=== PATIENT | female | born 1960 | race Caucasian/White ===

== ENCOUNTER 2017-02-09 08:27 | Emergency (ER) | payer BC ==
[2017-02-09] MEDS ORDERED: TORAdol 30 mg Injection IV ONE (08:54)
--- NOTE | 2017-02-09 08:54 | ERPHSYRPT ---
- History of Present Illness Time Seen by Provider: 02/09/17 08:44 Historian: patient Exam Limitations: no limitations Patient Subjective Stated Complaint: PT REPORTS LEFT SIDED CHEST PAIN RADIATING TO LEFT SHOULDER BEGINNING ADORE 0330 THIS AM-REPORTS PAIN INCREASES WITH BREATHING-DENIES COUGH-DENIES RECENT ILLNESS Triage Nursing Assessment: PT PINK WARM ET [id number] EASY ET NONLABORED- LUNGS CLEAR-RIGHT RADIAL PULSE REGULAR-PT AMBULATORY TO ED WITH NO SOB NOTED Physician History: The patient is a 57-year-old female who was sent to the emergency room from work today because she was complaining of chest pain when she woke up last night at 3:30 AM. Chest pain is in the upper left part of her chest that extends to her left shoulder. It hurts to take deep breath and move her left shoulder. She denies shortness of breath. She denies nausea or vomiting. She denies sweating. She describes the chest pain as tightness. 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 Her past medical history is significant for hypertension, CHF, depression, high cholesterol, asthma, and hypothyroidism. Timing/Duration: today, hour(s) (6) Activities at Onset: none Quality: tightness Location: other (left chest) Chest Pain Radiation: arm (left shoulder) Severity of Pain-Max: moderate Severity of Pain-Current: moderate Modifying Factors: Improves With: breathing, movement Associated Symptoms: denies symptoms Prior Chest Pain/Cardiac Workup: no prior chest pain Nitro Today/Relief: no nitro taken today Aspirin Treatment Today: 81 mg x 1 Allergies/Adverse Reactions: No Known Drug Allergies Allergy (Verified 02/09/17 08:36) Home Medications: Albuterol Sulfate [Ventolin Hfa] 2 puffs IH Q6HPRN PRN 04/13/16 [History] Carvedilol 12.5 mg [Coreg 12.5 mg] 12.5 mg PO BID 04/13/16 [History] Fluoxetine HCl 10 mg [Prozac 10 mg] 10 mg PO DAILY 04/13/16 [History] Levothyroxine Sodium 75 Mcg [Synthroid 75 Mcg] 75 mcg PO DAILY 04/13/16 [ History] Lisinopril 20 mg [Zestril 20 MG] 20 mg PO DAILY 04/13/16 [History] Pravastatin Sodium [Pravachol] 20 mg PO HS 04/13/16 [History] Ascorbic Acid 500 mg [Vitamin C 500 MG] 1,000 mg PO DAILY 04/15/16 [ History] Aspirin 81 gm Chew [Baby Aspirin 81 mg Chew] 81 mg PO DAILY 04/15/16 [ History] Ca Carb & Gluc/Mag Ox & Gluc [Calcium Magnesium Caplet] 1 each PO DAILY [History] Cranberry Extract/Vit C [Azo Cranberry Softgel] 1 each PO DAILY 04/15/16 [ History] Cyanocobalamin/Folic Acid [B-12 1,000 Mcg Sub Tablet] 1 each SL DAILY 04/15/16 [ History] Echinacea 0 mg PO DAILY 04/15/16 [History] Ferrous Sulfate, Dried [Iron] 65 mg PO DAILY 04/15/16 [History] [place]-3 Fatty Acids/Fish Oil [Fish Oil 1,000 mg Capsule] 1,000 mg PO DAILY 04/15/16 [History] Potassium 99 mg PO DAILY 04/15/16 [History] Vitamin E 400 Units [Vitamin E 400 UNIT SOFTGEL] 400 unit PO DAILY [History] Hx Tetanus, Diphtheria Vaccination/Date Given: No Hx Influenza Vaccination/Date Given: Yes (2015) Hx Pneumococcal Vaccination/Date Given: No Immunizations Up to Date: Yes - Review of Systems Constitutional: No Fever, No Chills Eyes: No Symptoms Ears, Nose, & Throat: No Symptoms Respiratory: No Cough, No Dyspnea Cardiac: Chest Pain, No Edema, No Syncope Abdominal/Gastrointestinal: No Abdominal Pain, No Nausea, No Vomiting, No Diarrhea Genitourinary Symptoms: No Dysuria Musculoskeletal: Myalgias Skin: No Rash Neurological: No Dizziness, No Focal Weakness, No Sensory Changes Psychological: No Symptoms Endocrine: No Symptoms Hematologic/Lymphatic: No Symptoms Immunological/Allergic: No Symptoms All Other Systems: Reviewed and Negative - Past Medical History Pertinent Past Medical History: Yes Neurological History: No Pertinent History ENT History: No Pertinent History Cardiac History: Arrhythmia, High Cholesterol, Hypertension Respiratory History: Asthma Endocrine Medical History: Hypothyroidism Musculoskeletal History: Arthritis GI Medical History: Hepatitis History: No Pertinent History Psycho-Social History: Anxiety Female Reproductive Disorders: No Pertinent History Other Medical History: hepatitis as a young child. rheumatic fever/ heart murmur - Past Surgical History Past Surgical History: Yes Neuro Surgical History: No Pertinent History Cardiac: Cardiac Catheterization Respiratory: No Pertinent History Gastrointestinal: Cholecystectomy Genitourinary: No Pertinent History Musculoskeletal: No Pertinent History Female Surgical History: Section, Tubal Ligation Other Surgical History: cystectomy. d&c. breast bx,. bilateral heal spurs - Social History Smoking Status: Former smoker Exposure to second hand smoke: No Drug Use: none Patient Lives Alone: No - Nursing Vital Signs Nursing Vital Signs: Initial Vital Signs Temperature 97.5 F 02/09/17 08:28 Pulse Rate 65 02/09/17 08:28 Respiratory Rate 20 02/09/17 08:28 Blood Pressure 147/74 02/09/17 08:28 O2 Sat by Pulse Oximetry 99 02/09/17 08:28 Pain Scale Pain Intensity 0 - Physical Exam General Appearance: no apparent distress, alert Eye Exam: PERRL/EOMI, eyes nml inspection Ears, Nose, Throat Exam: normal ENT inspection Neck Exam: normal inspection, non-tender, supple, full range of motion Respiratory Exam: chest tenderness (Light palpation of the left pectoralis muscle and left deltoid muscle reproduces the patient's pain.) Cardiovascular Exam: regular rate/rhythm, normal heart sounds Gastrointestinal/Abdomen Exam: soft, No tenderness, No mass Pelvic Exam: not done Rectal Exam: not done Back Exam: normal inspection, No CVA tenderness, No vertebral tenderness Extremity Exam: normal inspection, normal range of motion Neurologic Exam: alert, oriented x 3, cooperative, normal mood/affect, sensation nml, No motor deficits Skin Exam: normal color, warm, dry SpO2 Interpretation: normal SpO2: 99 Oxygen Delivery: Room Air - Course EKG Interpreted by Me: RATE, Sinus Rhythm, NORMAL AXIS, NORMAL INTERVALS, NORMAL QRS, NORMAL ST-T - Radiology Exams Chest X-ray Interpretation: Teleradiologist Report, Negative (per Dr Joaquin.) Ordered Tests: Active Orders 24 hr Category Date Time Status EKG-ER Only STAT Care 02/09/17 08:54 Active IV Insertion STAT Care 02/09/17 08:54 Active CHEST 2 VIEWS (PA AND LAT) Stat Exams 02/09/17 08:54 Completed CBC W DIFF Stat Lab 02/09/17 09:02 Completed CMP Stat Lab 02/09/17 09:02 Completed TROPONIN Q3H Lab 02/09/17 08:59 Completed TROPONIN Q3H Lab 02/09/17 12:00 Ordered TROPONIN Q3H Lab 02/09/17 15:00 Ordered TROPONIN Q3H Lab 02/09/17 18:00 Ordered TROPONIN Q3H Lab 02/09/17 21:00 Ordered Medication Summary Discontinued Medications Generic Name Dose Route Start Last Admin Trade Name Stefan PRN Reason Stop Dose Admin Ketorolac Tromethamine 30 mg 02/09/17 08:54 02/09/17 08:59 Toradol 30 Mg Injection IV 02/09/17 08:55 30 mg STAT ONE Administration Ketorolac Tromethamine Confirm 02/09/17 08:57 Toradol 30 Mg Injection Administered 02/09/17 08:58 Dose 30 mg .ROUTE .[employer] ONE Lab/Rad Data: Laboratory Result Diagrams 02/09/17 09:02 02/09/17 09:02 Laboratory Results 02/09/17 02/09/17 02/09/17 Range/Units 09:02 09:02 08:59 WBC 9.9 (4.0-10.5) K/mm3 RBC 4.59 (4.1-5.4) M/mm3 Hgb 12.9 (12.0-16.0) gm/dl Hct 41.3 (35-47) % MCV 90.0 (78-100) fl MCH 28.1 (26-32) pg MCHC 31.2 L (32-36) g/dl RDW 14.4 H (11.5-14.0) % Plt Count 286 (150-450) K/mm3 MPV 11.6 H (6-9.5) fl Gran % 68.2 H (36.0-66.0) % Lymphocytes % 22.7 L (24.0-44.0) % Monocytes % 7.0 (0.0-12.0) % Eosinophils % 1.9 (0.00-5.0) % Basophils % 0.2 (0.0-0.4) % Basophils # 0.02 (0-0.4) Sodium 139 (136-145) mEq/L Potassium 4.0 (3.5-5.1) mEq/L Chloride 102 (98-107) mEq/L Carbon Dioxide 29.6 (21-32) mEq/L Anion Gap 11.6 (5-15) MEQ/L BUN 16 (9-20) mg/dL Creatinine 0.85 (0.55-1.30) mg/dl Estimated GFR > 60 ML/MIN Glucose 102 (70-110) MG/DL Calcium 9.7 (8.5-10.1) mg/dL Total Bilirubin 0.40 (0.2-1.0) mg/dL AST 15 (15-37) U/L ALT 18 (12-78) U/L Alkaline Phosphatase 72 (46-116) U/L Troponin I < 0.017 (0.000-0.056) ng/ml Serum Total Protein 7.7 (6.4-8.2) gm/dL Albumin 3.7 (3.4-5.0) g/dL - Progress Progress: improved Air Movement: good Blood Culture(s) Obtained: No Antibiotics given: No Counseled pt/family regarding: lab results, diagnosis, rad results - Departure Time of Disposition: 10:05 Departure Disposition: Home Clinical Impression: Musculoskeletal chest pain Condition: Stable Critical Care Time: No Additional Instructions: You have musculoskeletal chest pain. You were given Toradol 30 mg by IV in the ER with good results. If needed, take Tylenol 1000 mg and ibuprofen 800 mg every 8 hours. Follow-up as needed.
[2017-02-09] MEDS ORDERED: TORAdol 30 mg Injection ONE (08:57)
[2017-02-09 09:10] LABS: BASOPHIL % 0.2 % (0.0-0.4); Eosinophil % 1.9 % (0.00-5.0); Granulocytes % 68.2 % (36.0-66.0); Lymphocytes % 22.7 % (24.0-44.0); Mean Corpuscular Hemoglobin 28.1 pg (26-32); Mean Platelet Volume 11.6 fl (6-9.5); Platelet Count 286 K/mm3 (150-450); Red Blood Count 4.59 M/mm3 (4.1-5.4); Red Cell Distribution Width 14.4 % (11.5-14.0); White Blood Count 9.9 K/mm3 (4.0-10.5)
--- NOTE | 2017-02-09 09:18 | XRAY ---
Indication: Chest and left shoulder pain. Comparison: October 23, 2009. PA/lateral chest remains hyperinflated and clear. Heart and mediastinal structures within normal limits. Bony thorax intact again with mild degenerative changes. Impression: Stable nonacute hyperinflated chest.
[2017-02-09 09:47] LABS: ALBUMIN 3.7 g/dL (3.4-5.0); ALKALINE PHOSPHATASE 72 U/L (46-116); ANION GAP 11.6 MEQ/L (5-15); BLOOD UREA NITROGEN 16 mg/dL (9-20); CHLORIDE 102 mEq/L (98-107); Carbon Dioxide 29.6 mEq/L (21-32); Glucose 102 MG/DL (70-110); SGOT/AST 15 U/L (15-37); SGPT/ALT 18 U/L (12-78); SODIUM 139 mEq/L (136-145); Total Protein 7.7 gm/dL (6.4-8.2)
[2017-02-09 10:07] VITALS: BP 140/80; PULSE 55; O2SAT 99
== END 2017-02-09 10:13 | disposition home or self-care (01) ==
LOC: ED 08:27
DX: R07.89 Other chest pain (principal); I10 Essential (primary) hypertension; E78.00 Pure hypercholesterolemia, unspecified; E03.9 Hypothyroidism, unspecified; Z79.899 Other long term (current) drug therapy
CPT/HCPCS: 36000; 36415; 71020; 80053; 84484; 85025; 93005; 93041; 96374; 99284; J1885

== ENCOUNTER 2020-03-07 08:12 | Emergency (ER) | payer OTHER ==
[2020-03-07] MEDS ORDERED: Zofran 4 MG/2 ML VIAL IV ONE (08:36)
[2020-03-07] MEDS ORDERED: MORPHINE SULFATE 2 MG INJ IV ONE (08:36)
[2020-03-07] MEDS ORDERED: Sodium Chloride 0.9% 1000 ML 1,000 ML IV SCH (08:45)
[2020-03-07] MEDS ORDERED: Zofran 4 MG/2 ML VIAL ONE (08:49)
[2020-03-07] MEDS ORDERED: MORPHINE SULFATE 2 MG INJ ONE (08:49)
[2020-03-07] MEDS ORDERED: Sodium Chloride 0.9% 1000 ML 1,000 ML ONE (08:49)
[2020-03-07 08:59] LABS: Absolute Neutrophil Ct (ANC) 9.04 (1.4-6.9); BASOPHIL % 0.3 % (0.0-0.4); Basophil (Absolute #) 0.03 (0-0.4); Eosinophil % 2.5 % (0.00-5.0); Eosinophil (Absolute #) 0.29 (0-0.5); Hematocrit 41.9 % (35-47); Hemoglobin 13.1 gm/dl (12.0-16.0); Lymphocyte (Absolute #) 1.77 (1.0-4.6); Lymphocytes % 15.1 % (24.0-44.0); Mean Cell Volume 92.3 fl (78-100); Mean Corpuscular Hemoglobin 28.9 pg (26-32); Mean Corpuscular Hgb Concent. 31.3 g/dl (32-36); Mean Platelet Volume 11.3 fl (7.5-11.0); Monocyte (Absolute #) 0.61 (0.0-1.3); Monocytes % 5.2 % (0.0-12.0); Neutrophil % 76.9 % (36.0-66.0); Platelet Count 265 K/mm3 (150-450); Red Blood Count 4.54 M/mm3 (4.1-5.4); Red Cell Distribution Width 14.7 % (11.5-14.0); White Blood Count 11.7 K/mm3 (4.0-10.5)
[2020-03-07 09:04] LABS: Appearance SLIGHTLY CLOUDY (CLEAR); Bacteria MODERATE /HPF (NEGATIVE); Bilirubin NEGATIVE (NEGATIVE); Blood MODERATE Ery/ul (0-5); Epithelial Cells RARE /HPF (FEW); Glucose NEGATIVE (NEGATIVE); Ketones NEGATIVE (NEGATIVE); Leukocyte Esterase TRACE (NEGATIVE); Mucus SLIGHT /HPF (NEGATIVE); Nitrite POSITIVE (NEGATIVE); Protein,Urine Dip NEGATIVE (Negative); RBC 51-100 /HPF (0-2); Specific Gravity 1.015 (1.005-1.025); Urobilinogen 4 mg/dL (0-1); WBC >100 /HPF (0-5)
[2020-03-07 09:07] LABS: ALBUMIN 4.2 g/dL (3.5-5.0); BILIRUBIN,TOTAL 0.8 mg/dL (0.2-1.3); Calcium 9.6 mg/dL (8.4-10.2); Creatinine 1 1.02 mg/dL (0.52-1.04); EST GLOMERULAR FILTRATION RATE 58.8 ML/MIN; Potassium 4.7 mmol/L (3.5-5.1); Total Protein 7.3 g/dL (6.3-8.2)
[2020-03-07 10:03] VITALS: BP 144/79; PULSE 67; O2SAT 94
--- NOTE | 2020-03-07 10:16 | XRAY ---
Exam: CT of the abdomen and pelvis with IV contrast from 03/07/2020. CTDI: 39.19 mGy Comparison: None. Indication: 60-year-old female with pain. Technique: Post-IV contrast axial images were obtained through the abdomen and pelvis during and following automated injection of 80 cc of Isovue-370 contrast material. Nor oral contrast was given. Reconstructed coronal and sagittal images were created and reviewed. Findings: There is asymmetric swelling and perirenal stranding about the right kidney as compared the left kidney. Also, I see no significant excretion of contrast material from the right kidney on the delay images. There is equivocal evidence of a tiny stone within the posterior aspect of the dilated right renal pelvis on axial images #41 and #42 of series #5. Not only is there hydronephrosis on the right, but the right ureter appears asymmetrically distended down to the level of 3.1 mm calcification within the distal right ureter on axial images #72 and #73 of series 2. This measures about 3.8 mm in diameter on coronal image #134. This appears to represent an obstructing distal right ureteral stone just above the ureterovesical junction. The left ureter appears unremarkable. There is a tiny cortical cyst at the lateral margin of lower pole of the left kidney. No solid renal mass is seen. The lung bases appear essentially clear. The transverse heart size is normal. Mild diffuse hepatic steatosis is seen. Numerous surgical clips consistent with prior cholecystectomy are noted. No hepatic mass or biliary duct distention is seen. The spleen is of normal size without mass. The pancreas and adrenal glands appear normal. Other than the small cortical cyst within the lower pole of the left kidney, the left kidney appears essentially unremarkable. The abdominal aorta reveals atherosclerotic vascular calcification but no aneurysm or abnormal retroperitoneal lymphadenopathy. Abundant subcutaneous and intraperitoneal fat is seen. There is no free intraperitoneal air. The abdomen is protuberant. A small fat-containing umbilical hernia is seen on midline sagittal image #106. No bowel containing ventral hernia is seen. The bowel is nonobstructed. No bowel wall thickening is seen. I see no findings to suggest acute appendicitis within the right lower quadrant. The uterus is anteflexed and of normal size. The ovaries appear of unremarkable size. No enlarged pelvic lymph nodes or free intraperitoneal fluid is seen. The urinary bladder is mostly contracted. The skeleton reveals no acute fracture or aggressive bone lesion. Moderate to marked bilateral facet joint arthropathy is seen at L4-L5 and L5-S1. Vacuum disc phenomena is seen within the upper 3 lumbar discs. I also note narrowing of L-1L2 interspace height, and to lesser extent, the L2-L3 interspace height. Anterior lateral vertebral endplate spurring is seen within the upper 3 lumbar interspaces. These findings suggest degenerative disc disease. There appears to be slight retrolisthesis of L2 with respect L3 and L3 with respect L4 on sagittal image #97, likely degenerative in nature. Impression: 1. Acute obstructive uropathy on the right with hydroureteronephrosis, right perirenal stranding, and delay in excretion of contrast into the right kidney. This appears to be caused by a 3.8 mm obstructing distal right ureteral stone just above the ureterovesical junction. There is also equivocal evidence of another tiny stone within the posterior aspect of the dilated right renal pelvis. See axial images #41 and #42 of series 2. 2. Hepatic steatosis, evidence of prior cholecystectomy, small cortical cyst within lower pole of the left kidney, atherosclerotic vascular calcification, and mild fat-containing umbilical hernia. There is no bowel obstruction or free air or free fluid. 3. Skeletal findings, as discussed above.
--- NOTE | 2020-03-07 10:30 | ERPHSYRPT ---
- History of Present Illness Time Seen by Provider: 03/07/20 08:40 Historian: patient Exam Limitations: no limitations Patient Subjective Stated Complaint: Pt woke approx 0200 with pain to the right flank, right upper and lower quadrant, rates pain 9/10 Triage Nursing Assessment: Pt was brought to the ER by her daughter, hypertensive, acute right sided abdominal pain, acute right flank pain, diarrhea all night, states that she was fine when she went to bed and woke approx 0200 with the pain, bowel sounds heard in all 4, pt appears to be in moderate pain, denies any other issues at this time Physician History: Patient is a 6-year-old female presents to our ED with complaints of right-sided flank pain. Patient had loose stools that started last night. Patient felt well as she went to bed however awoke early this morning with right-sided flank pain. Pain described as an ache that spans from her right upper to right lower flanks. No associated trauma. No fever. Patient took Tylenol with minimal improvement. Pain rated 9 out of 10. No specific worsening or improving factors. Patient denies chest pain. She feels mildly nauseous. No vomiting. Patient voices no other complaints or concerns at this time. Timing/Duration: today Activities at Onset: none Quality: aching Abdominal Pain Onset Location: flank Pain Radiation: no radiation Severity of Pain-Max: moderate Severity of Pain-Current: mild Modifying Factors: Improves With: nothing Associated Symptoms: diarrhea, nausea, No chest pain, No diaphoresis, No fever/chills, No fatigue, No headache, No heartburn, No loss of appetite, No neck pain, No shortness of breath Previous symptoms: no prior history Allergies/Adverse Reactions: No Known Drug Allergies Allergy (Verified 03/07/20 08:49) Home Medications: Carvedilol 12.5 mg [Coreg 12.5 mg] 12.5 mg PO BID 04/13/16 [History] Fluoxetine HCl 10 mg [Prozac 10 mg] 10 mg PO DAILY 04/13/16 [History] Levothyroxine Sodium 75 Mcg [Synthroid 75 Mcg] 75 mcg PO DAILY 04/13/16 [History] Lisinopril 20 mg [Zestril 20 MG] 20 mg PO DAILY 04/13/16 [History] Pravastatin Sodium [Pravachol] 20 mg PO HS 04/13/16 [History] Ascorbic Acid 500 mg [Vitamin C 500 MG] 1,000 mg PO DAILY 04/15/16 [History] Aspirin 81 gm Chew [Baby Aspirin 81 mg Chew] 81 mg PO DAILY 04/15/16 [History] Calcium Carb,Gluc/Mag Ox,Gluc [Calcium Magnesium Caplet] 1 each PO DAILY 04/15/16 [History] Cranberry Fruit Extract/Vit C [Azo Cranberry Softgel] 1 each PO DAILY 04/15/16 [History] Cyanocobalamin/Folic Acid [B-12 1,000 Mcg Sub Tablet] 1 each SL DAILY 04/15/16 [History] Echinacea 760 mg PO DAILY 04/15/16 [History] Ferrous Sulfate, Dried [Iron] 65 mg PO DAILY 04/15/16 [History] [place]-3 Fatty Acids/Fish Oil [Fish Oil 1,000 mg Capsule] 1,000 mg PO DAILY 04/15/16 [History] Potassium 99 mg PO DAILY 04/15/16 [History] Vitamin E 400 Units [Vitamin E 400 UNIT SOFTGEL] 400 unit PO DAILY 04/15/16 [History] Nabumetone [Relafen] 750 mg PO DAILY 03/07/20 [History] Hx Tetanus, Diphtheria Vaccination/Date Given: No Hx Influenza Vaccination/Date Given: Yes (2015) Hx Pneumococcal Vaccination/Date Given: No Travel Risk - International Travel Have you traveled outside of the country in past 3 weeks: No - Coronavirus Screening Are you exhibiting any of the following symptoms?: No Close contact with a COVID-19 positive Pt in past 14-21 Days: No - Review of Systems Constitutional: No Symptoms, No Fever, No Chills Eyes: No Symptoms Ears, Nose, & Throat: No Symptoms Respiratory: No Symptoms, No Cough, No Dyspnea Cardiac: No Symptoms, No Chest Pain, No Edema, No Syncope Abdominal/Gastrointestinal: No Symptoms, No Abdominal Pain, No Nausea, No Vomiting, No Diarrhea Genitourinary Symptoms: No Symptoms, No Dysuria Musculoskeletal: No Symptoms, No Back Pain, No Neck Pain Skin: No Symptoms, No Rash Neurological: No Symptoms, No Dizziness, No Focal Weakness, No Sensory Changes Psychological: No Symptoms Endocrine: No Symptoms Hematologic/Lymphatic: No Symptoms Immunological/Allergic: No Symptoms All Other Systems: Reviewed and Negative - Past Medical History Pertinent Past Medical History: Yes Neurological History: Migraines ENT History: No Pertinent History Cardiac History: High Cholesterol, Hypertension, Other Respiratory History: Asthma Endocrine Medical History: Hypothyroidism Musculoskeletal History: Osteoarthritis GI Medical History: Hepatitis History: No Pertinent History Psycho-Social History: Anxiety Female Reproductive Disorders: No Pertinent History Other Medical History: PMHX: HEART MURMUR, DEPRESSION. SXHX: TAILBONE CYST REMOVED, CHOLECYSTECTOMY, HEEL SPURS REMOVED BILATERALLY, BREAST NODULE REMOVED (NOT MALIGNANT) - Past Surgical History Past Surgical History: Yes Neuro Surgical History: No Pertinent History Cardiac: Cardiac Catheterization Respiratory: No Pertinent History Gastrointestinal: Cholecystectomy Genitourinary: No Pertinent History Musculoskeletal: No Pertinent History Female Surgical History: Section, Tubal Ligation Other Surgical History: cystectomy. d&c. breast bx,. bilateral heal spurs - Social History Smoking Status: Former smoker Exposure to second hand smoke: Yes Drug Use: none Patient Lives Alone: Yes - Nursing Vital Signs Nursing Vital Signs: Initial Vital Signs Temperature 98.1 F 03/07/20 08:34 Pulse Rate 65 03/07/20 08:34 Blood Pressure 166/80 03/07/20 08:34 O2 Sat by Pulse Oximetry 96 03/07/20 08:34 Pain Scale Pain Intensity 9 - Physical Exam General Appearance: no apparent distress, alert Eye Exam: PERRL/EOMI, eyes nml inspection Ears, Nose, Throat Exam: normal ENT inspection, pharynx normal, moist mucous m embranes Neck Exam: normal inspection, non-tender, supple, full range of motion Respiratory Exam: normal breath sounds, lungs clear, No respiratory distress Cardiovascular Exam: regular rate/rhythm, normal heart sounds Gastrointestinal/Abdomen Exam: soft, tenderness, other (Mild right flank tenderness. Overlying soft tissue intact. No signs of trauma.), No mass Back Exam: normal inspection, normal range of motion, No CVA tenderness, No vertebral tenderness Extremity Exam: normal inspection, normal range of motion, pelvis stable Neurologic Exam: alert, oriented x 3, cooperative, normal mood/affect, nml cerebellar function, sensation nml, No motor deficits Skin Exam: normal color, warm, dry Lymphatic Exam: adenopathy SpO2 Interpretation: normal SpO2: 94 O2 Delivery: Room Air - Course Nursing assessment & vital signs reviewed: Yes - CT Exams Abdomen/Pelvis CT Interpretation: Tele-radiologist Report (Report reveals right sided obstructing kidney stone measuring 3.8 mm at the UVJ with hydronephrosis and stranding around the right kidney. There is a fat-containing umbilical hernia hepatic steatosis spine arthritis and a renal cyst.) Ordered Tests: Active Orders 24 hr Category Date Time Status IV Insertion STAT Care 03/07/20 08:36 Active ABDOMEN AND PELVIS W CONTRAST [CT] Stat Exams 03/07/20 08:37 Completed CBC W DIFF Stat Lab 03/07/20 08:50 Completed CMP Stat Lab 03/07/20 08:50 Completed CULTURE,URINE Stat Lab 03/07/20 08:47 Received TROPONIN Q3H Lab 03/07/20 08:50 Completed TROPONIN Q3H Lab 03/07/20 11:45 Ordered TROPONIN Q3H Lab 03/07/20 14:45 Ordered TROPONIN Q3H Lab 03/07/20 17:45 Ordered TROPONIN Q3H Lab 03/07/20 20:45 Ordered UA W/RFX UR CULTURE Stat Lab 03/07/20 08:47 Completed Medication Summary Generic Name Dose Route Start Last Admin Trade Name Freq PRN Reason Stop Dose Admin Sodium Chloride 1,000 mls @ 50 mls/hr 03/07/20 08:45 03/07/20 08:50 Sodium Chloride 0.9% 1000 Ml IV 04/06/20 08:44 50 mls/hr .Q20H JOZEF Administration Ceftriaxone Sodium/Dextrose 1 g in 50 mls @ 100 mls/hr 03/07/20 10:39 03/07/20 10:44 Rocephin 1 Gm-D5w 50 Ml Bag IV 03/07/20 11:08 100 mls/hr STAT STA 100 mls/hr Administration Discontinued Medications Generic Name Dose Route Start Last Admin Trade Name Freq PRN Reason Stop Dose Admin Ceftriaxone Sodium/Dextrose Confirm 03/07/20 10:43 Rocephin 1 Gm-D5w 50 Ml Bag Administered 03/07/20 10:44 Dose 1 g in 50 mls @ ud IV .STK-MED ONE Morphine Sulfate 2 mg 03/07/20 08:36 03/07/20 08:51 Morphine Sulfate 2 Mg Inj IV 03/07/20 08:37 2 mg STAT ONE Administration Morphine Sulfate Confirm 03/07/20 08:49 Morphine Sulfate 2 Mg Inj Administered 03/07/20 08:50 Dose 2 mg .ROUTE .STK-MED ONE Ondansetron HCl 4 mg 03/07/20 08:36 03/07/20 08:50 Zofran 4 Mg/2 Ml Vial IV 03/07/20 08:37 4 mg STAT ONE Administration Ondansetron HCl Confirm 03/07/20 08:49 Zofran 4 Mg/2 Ml Vial Administered 03/07/20 08:50 Dose 4 mg .ROUTE .STK-MED ONE Lab/Rad Data: Laboratory Result Diagrams 03/07/20 08:50 03/07/20 08:50 Laboratory Results 03/07/20 03/07/20 03/07/20 Range/Units 08:50 08:50 08:50 WBC 11.7 H (4.0-10.5) K/mm3 RBC 4.54 (4.1-5.4) M/mm3 Hgb 13.1 (12.0-16.0) gm/dl Hct 41.9 (35-47) % MCV 92.3 (78-100) fl MCH 28.9 (26-32) pg MCHC 31.3 L (32-36) g/dl RDW 14.7 H (11.5-14.0) % Plt Count 265 (150-450) K/mm3 MPV 11.3 H (7.5-11.0) fl Gran % 76.9 H (36.0-66.0) % Eos # (Auto) 0.29 (0-0.5) Absolute Lymphs (auto) 1.77 (1.0-4.6) Absolute Monos (auto) 0.61 (0.0-1.3) Lymphocytes % 15.1 L (24.0-44.0) % Monocytes % 5.2 (0.0-12.0) % Eosinophils % 2.5 (0.00-5.0) % Basophils % 0.3 (0.0-0.4) % Absolute Granulocytes 9.04 H (1.4-6.9) Basophils # 0.03 (0-0.4) Sodium 137 (137-145) mmol/L Potassium 4.7 (3.5-5.1) mmol/L Chloride 103 (98-107) mmol/L Carbon Dioxide 28 (22-30) mmol/L Anion Gap 10.0 (5-15) MEQ/L BUN 22 H (7-17) mg/dL Creatinine 1.02 (0.52-1.04) mg/dL Estimated GFR 58.8 ML/MIN Glucose 159 H (74-106) mg/dL Calcium 9.6 (8.4-10.2) mg/dL Total Bilirubin 0.80 (0.2-1.3) mg/dL AST 19 (14-36) U/L ALT 16 (0-35) U/L Alkaline Phosphatase 81 (38-126) U/L Troponin I < 0.012 (0.000-0.034) ng/mL Serum Total Protein 7.3 (6.3-8.2) g/dL Albumin 4.2 (3.5-5.0) g/dL Urine Color (YELLOW) Urine Appearance (CLEAR) Urine pH (5-6) Ur Specific [place] (1.005-1.025) Urine Protein (Negative) Urine Ketones (NEGATIVE) Urine Blood (0-5) [place]/ul Urine Nitrite (NEGATIVE) Urine Bilirubin (NEGATIVE) Urine Urobilinogen (0-1) mg/dL Ur Leukocyte Esterase (NEGATIVE) Urine WBC (Auto) (0-5) /HPF Urine RBC (Auto) (0-2) /HPF U Epithel Cells (Auto) (FEW) /HPF Urine Bacteria (Auto) (NEGATIVE) /HPF Urine Mucus (Auto) (NEGATIVE) /HPF Urine Culture Reflexed (NO) Urine Glucose (NEGATIVE) mg/dL 03/07/20 Range/Units 08:47 WBC (4.0-10.5) K/mm3 RBC (4.1-5.4) M/mm3 Hgb (12.0-16.0) gm/dl Hct (35-47) % MCV (78-100) fl MCH (26-32) pg MCHC (32-36) g/dl RDW (11.5-14.0) % Plt Count (150-450) K/mm3 MPV (7.5-11.0) fl Gran % (36.0-66.0) % Eos # (Auto) (0-0.5) Absolute Lymphs (auto) (1.0-4.6) Absolute Monos (auto) (0.0-1.3) Lymphocytes % (24.0-44.0) % Monocytes % (0.0-12.0) % Eosinophils % (0.00-5.0) % Basophils % (0.0-0.4) % Absolute Granulocytes (1.4-6.9) Basophils # (0-0.4) Sodium (137-145) mmol/L Potassium (3.5-5.1) mmol/L Chloride (98-107) mmol/L Carbon Dioxide (22-30) mmol/L Anion Gap (5-15) MEQ/L BUN (7-17) mg/dL Creatinine (0.52-1.04) mg/dL Estimated GFR ML/MIN Glucose (74-106) mg/dL Calcium (8.4-10.2) mg/dL Total Bilirubin (0.2-1.3) mg/dL AST (14-36) U/L ALT (0-35) U/L Alkaline Phosphatase (38-126) U/L Troponin I (0.000-0.034) ng/mL Serum Total Protein (6.3-8.2) g/dL Albumin (3.5-5.0) g/dL Urine Color ORANGE (YELLOW) Urine Appearance SLIGHTLY CLOUDY (CLEAR) Urine pH 5.0 (5-6) Ur Specific [place] 1.015 (1.005-1.025) Urine Protein NEGATIVE (Negative) Urine Ketones NEGATIVE (NEGATIVE) Urine Blood MODERATE (0-5) [place]/ul Urine Nitrite POSITIVE (NEGATIVE) Urine Bilirubin NEGATIVE (NEGATIVE) Urine Urobilinogen 4 (0-1) mg/dL Ur Leukocyte Esterase TRACE (NEGATIVE) Urine WBC (Auto) >100 (0-5) /HPF Urine RBC (Auto) 51-100 (0-2) /HPF U Epithel Cells (Auto) RARE (FEW) /HPF Urine Bacteria (Auto) MODERATE (NEGATIVE) /HPF Urine Mucus (Auto) SLIGHT (NEGATIVE) /HPF Urine Culture Reflexed YES (NO) Urine Glucose NEGATIVE (NEGATIVE) mg/dL - Progress Progress: improved Progress Note: 03/07/20 10:54 Patient reassessed. She feels well. Pain resolved. Ceftriaxone antibiotic infused. Patient will require urology services. We currently do not have a urologist available. We will transfer patient to [facility]. Case dis cussed with Dr. Garcia ER physician at [facility] who accepts transfer. Plan of care discussed with patient. She agrees to transfer to [facility] for further evaluation and treatment. Patient voices no other complaints or concerns at this time. Counseled pt/family regarding: lab results, diagnosis, rad results - Departure Departure Disposition: Transfer Clinical Impression: Pyelonephritis, UTI (urinary tract infection), Ureterolithiasis, Hepatic steatosis, Arthritis of spine, Hyperglycemia, Umbilical hernia without mention of obstruction or gangrene, Renal cyst Condition: Stable Critical Care Time: No Referrals: ROCÍO MEDINA MD [Primary Care Provider] -
[2020-03-07] MEDS ORDERED: ROCEPHIN 1 Gm-D5w 50 ml Bag** 1 G/50 ML IVPB IV STA (10:39)
[2020-03-07] MEDS ORDERED: ROCEPHIN 1 Gm-D5w 50 ml Bag** 1 G/50 ML IVPB IV ONE (10:43)
== END 2020-03-07 11:34 | disposition short-term general hospital (02) ==
LOC: ED 08:12
DX: N12 Tubulo-interstitial nephritis, not specified as acute or chronic (principal); N39.0 Urinary tract infection, site not specified; N20.1 Calculus of ureter; K76.0 Fatty (change of) liver, not elsewhere classified; M46.90 Unspecified inflammatory spondylopathy, site unspecified; R73.9 Hyperglycemia, unspecified; K42.9 Umbilical hernia without obstruction or gangrene; N28.1 Cyst of kidney, acquired; R10.9 Unspecified abdominal pain; R10.11 Right upper quadrant pain; R10.31 Right lower quadrant pain; R19.7 Diarrhea, unspecified; R11.0 Nausea; Z79.899 Other long term (current) drug therapy
CPT/HCPCS: 36000; 36415; 74177; 80053; 81001; 84484; 85025; 87077; 87086; 87186; 96365; 96374; 96375; 99285; J0696; J2270; J2405

== ENCOUNTER 2021-05-30 18:53 | Observation (INO) | payer OTHER ==
[2021-05-30] MEDS ORDERED: BABY ASPIRIN 81 MG CHEW PO ONE (19:02)
[2021-05-30] MEDS ORDERED: Nitrostat 0.4 MG (ED) SL ONE ×2 (19:02→19:09)
--- NOTE | 2021-05-30 19:02 | ERPHSYRPT ---
- History of Present Illness Time Seen by Provider: 05/30/21 18:59 Historian: patient Exam Limitations: no limitations Timing/Duration: today Activities at Onset: none Quality: pressure Location: substernal Severity of Pain-Max: moderate Severity of Pain-Current: moderate Associated Symptoms: shortness of breath Prior Chest Pain/Cardiac Workup: no prior chest pain Nitro Today/Relief: 0.4 mg x 1, provided by ED, mild relief (after nitro paste application and breathing Tx/Steroids) Aspirin Treatment Today: 81 mg x 4, provided by ED Allergies/Adverse Reactions: No Known Drug Allergies Allergy (Verified 03/07/20 08:49) Home Medications: Carvedilol 12.5 mg [Coreg 12.5 mg] 12.5 mg PO BID 04/13/16 [History] Fluoxetine HCl 10 mg [Prozac 10 mg] 10 mg PO DAILY 04/13/16 [History] Levothyroxine Sodium 75 Mcg [Synthroid 75 Mcg] 75 mcg PO DAILY 04/13/16 [History] Lisinopril 20 mg [Zestril 20 MG] 20 mg PO DAILY 04/13/16 [History] Pravastatin Sodium [Pravachol] 20 mg PO HS 04/13/16 [History] Ascorbic Acid 500 mg [Vitamin C 500 MG] 1,000 mg PO DAILY 04/15/16 [ History] Aspirin 81 gm Chew [Baby Aspirin 81 mg Chew] 81 mg PO DAILY 04/15/16 [History] Calcium Carb,Gluc/Mag Ox,Gluc [Calcium Magnesium Caplet] 1 each PO DAILY 04/15/16 [History] Cranberry Fruit Extract/Vit C [Azo Cranberry Softgel] 1 each PO DAILY 04/15/16 [History] Cyanocobalamin/Folic Acid [B-12 1,000 Mcg Sub Tablet] 1 each SL DAILY 04/15/16 [History] Echinacea 760 mg PO DAILY 04/15/16 [History] Ferrous Sulfate, Dried [Iron] 65 mg PO DAILY 04/15/16 [History] [place]-3 Fatty Acids/Fish Oil [Fish Oil 1,000 mg Capsule] 1,000 mg PO DAILY 04/15/16 [History] Potassium 99 mg PO DAILY 04/15/16 [History] Vitamin E 400 Units [Vitamin E 400 UNIT SOFTGEL] 400 unit PO DAILY 04/15/16 [History] Nabumetone [Relafen] 750 mg PO DAILY 03/07/20 [History] Hx Tetanus, Diphtheria Vaccination/Date Given: No Hx Influenza Vaccination/Date Given: Yes (2015) Hx Pneumococcal Vaccination/Date Given: No - Review of Systems Constitutional: No Fever, No Chills Eyes: No Symptoms Ears, Nose, & Throat: No Symptoms Respiratory: Dyspnea, No Cough Cardiac: Chest Pain, No Edema, No Syncope Abdominal/Gastrointestinal: No Abdominal Pain, No Nausea, No Vomiting, No Diarrhea Genitourinary Symptoms: No Dysuria Musculoskeletal: No Back Pain, No Neck Pain Skin: No Rash Neurological: No Dizziness, No Focal Weakness, No Sensory Changes Psychological: No Symptoms Endocrine: No Symptoms Hematologic/Lymphatic: No Symptoms Immunological/Allergic: No Symptoms All Other Systems: Reviewed and Negative - Past Medical History Pertinent Past Medical History: Yes Neurological History: Migraines ENT History: No Pertinent History Cardiac History: High Cholesterol, Hypertension, Other Respiratory History: No Pertinent History Endocrine Medical History: Hypothyroidism Musculoskeletal History: Osteoarthritis GI Medical History: Hepatitis History: No Pertinent History Psycho-Social History: Anxiety Female Reproductive Disorders: No Pertinent History Other Medical History: PATIENT REPORTS SHE HAS A HEART MURMUR SINCE AGE OF 8. OA IN BILATERAL KNEES. RECENTLY COMPLETED SERIES OF 3 GEL INJECTIONS AND PAIN HAS IMPROVED. - Past Surgical History Past Surgical History: Yes Neuro Surgical History: No Pertinent History Cardiac: Cardiac Catheterization Respiratory: No Pertinent History Gastrointestinal: Cholecystectomy Genitourinary: No Pertinent History Musculoskeletal: No Pertinent History Female Surgical History: Section, Tubal Ligation Other Surgical History: cystectomy. d&c. breast bx,. bilateral heal spurs - Social History Smoking Status: Former smoker Exposure to second hand smoke: Yes Drug Use: none Patient Lives Alone: Yes - Nursing Vital Signs Nursing Vital Signs: Initial Vital Signs Temperature 98.0 F 05/30/21 18:56 Pulse Rate 66 05/30/21 18:56 Respiratory Rate 22 05/30/21 18:56 Blood Pressure 174/91 05/30/21 18:56 O2 Sat by Pulse Oximetry 98 05/30/21 18:56 Pain Scale Pain Intensity 3 - Physical Exam General Appearance: no apparent distress, alert Eye Exam: PERRL/EOMI, eyes nml inspection Ears, Nose, Throat Exam: normal ENT inspection, moist mucous membranes Neck Exam: normal inspection, non-tender, supple, full range of motion Respiratory Exam: normal breath sounds, airway intact, wheezing, No respiratory distress Cardiovascular Exam: regular rate/rhythm, normal heart sounds Gastrointestinal/Abdomen Exam: soft, No tenderness, No mass Pelvic Exam: deferred Rectal Exam: deferred Back Exam: normal inspection, No CVA tenderness, No vertebral tenderness Extremity Exam: normal inspection, normal range of motion Neurologic Exam: alert, oriented x 3, cooperative, normal mood/affect, sensation nml, No motor deficits Skin Exam: normal color, warm, dry SpO2 Interpretation: normal SpO2: 98 O2 Delivery: Room Air - Course Nursing assessment & vital signs reviewed: Yes EKG Interpreted by Me: Sinus Rhythm, NORMAL AXIS, NORMAL INTERVALS, Non-specific ST Changes - Radiology Exams Chest X-ray Interpretation: Reviewed by me, Infiltrates (bilateral lower field interst itial) - CT Exams Chest CT Interpretation: Tele-radiologist Report, No PE, Other (infiltrates turned out to be atelectasis.) Ordered Tests: Active Orders 24 hr Category Date Time Status Senior Graphic Designer STAT Care 05/30/21 19:03 Active EKG-ER Only STAT Care 05/30/21 19:02 Active IV Insertion STAT Care 05/30/21 19:02 Active Pulse Oximetry (ED) STAT Care 05/30/21 19:05 Active CHEST 1 VIEW (PORTABLE) Stat Exams 05/30/21 19:03 Completed CHEST WITH CONTRAST [CT] Stat Exams 05/30/21 19:31 Completed CBC W DIFF Stat Lab 05/30/21 19:12 Completed CMP Stat Lab 05/30/21 19:12 Completed D-DIMER QUANTITATIVE Stat Lab 05/30/21 19:12 Completed Manual Differential NC Stat Lab 05/30/21 19:12 Completed NT PRO BNP Stat Lab 05/30/21 19:12 Completed TROPONIN Q3H Lab 05/30/21 19:12 Completed TROPONIN Q3H Lab 05/30/21 22:15 Ordered TROPONIN Q3H Lab 05/31/21 01:15 Ordered TROPONIN Q3H Lab 05/31/21 04:15 Ordered TROPONIN Q3H Lab 05/31/21 07:15 Ordered Respiratory Therapy Assessment DAILY RT 05/30/21 19:31 Active Medication Summary Generic Name Dose Route Start Last Admin Trade Name Stefan PRN Reason Stop Dose Admin Sodium Chloride 1,000 mls @ 50 mls/hr 05/30/21 19:15 05/30/21 19:11 Sodium Chloride 0.9% 1000 Ml IV 06/29/21 19:14 50 mls/hr .Q20H JOZEF Administration Magnesium Sulfate/Dextrose 100 mls @ 100 mls/hr 05/30/21 19:15 05/30/21 19:11 Magnesium 1 Gm / 100 Ml D5w IV 05/30/21 21:14 100 mls/hr Q1H JOZEF Administration Discontinued Medications Generic Name Dose Route Start Last Admin Trade Name Stefan PRN Reason Stop Dose Admin Albuterol/Ipratropium 3 ml 05/30/21 19:05 05/30/21 19:28 Ipratropium/Albuterol Sulfate 3 Ml Ampul.Neb IH 05/30/21 19:06 3 ml STAT ONE Administration Albuterol/Ipratropium Confirm 05/30/21 19:27 Ipratropium/Albuterol Sulfate 3 Ml Ampul.Neb Administered 05/30/21 19:28 Dose 3 ml IH .STK-MED ONE Aspirin 324 mg 05/30/21 19:02 05/30/21 19:10 Aspirin 81 Mg Tab.Chew PO 05/30/21 19:03 324 mg STAT ONE Administration Aspirin Confirm 05/30/21 19:09 Aspirin 81 Mg Tab.Chew Administered 05/30/21 19:10 Dose 324 mg .ROUTE .STK-MED ONE Methylprednisolone Sodium 0 mg 05/30/21 19:05 05/30/21 19:10 Succinate 125 mg/ Sterile IV 05/30/21 19:06 125 mg Water 2 ml STAT ONE Administration Methylprednisolone Sodium Succinate Confirm 05/30/21 19:09 Methylprednis Sod Succ 125 Mg/2 Ml Vial Administered 05/30/21 19:10 Dose 125 mg .ROUTE .STK-MED ONE Nitroglycerin 0.4 mg 05/30/21 19:02 05/30/21 19:10 Nitroglycerin 0.4 Mg (Ed) 0.4 Mg Tab.Subl SL 05/30/21 19:03 0.4 mg STAT ONE Administration Nitroglycerin Confirm 05/30/21 19:09 Nitroglycerin 0.4 Mg (Ed) 0.4 Mg Tab.Subl Administered 05/30/21 19:10 Dose 0.4 mg SL .STK-MED ONE Nitroglycerin 1 gm 05/30/21 19:40 05/30/21 19:42 Nitroglycerin 1 Gm Packet TOP 05/30/21 19:41 1 gm STAT ONE Administration Nitroglycerin Confirm 05/30/21 19:41 Nitroglycerin 1 Gm Packet Administered 05/30/21 19:42 Dose 1 gm .ROUTE .STK-MED ONE Lab/Rad Data: Laboratory Result Diagrams 05/30/21 19:12 05/30/21 19:12 Laboratory Results 05/30/21 05/30/21 05/30/21 Range/Units 19:12 19:12 19:12 WBC (4.0-10.5) K/mm3 RBC (4.1-5.4) M/mm3 Hgb (12.0-16.0) gm/dl Hct (35-47) % MCV (78-100) fl MCH (26-32) pg MCHC (32-36) g/dl RDW (11.5-14.0) % Plt Count (150-450) K/mm3 MPV (7.5-11.0) fl Segmented Neutrophils (36.0-66.0) % Lymphocytes (Manual) (24-44) % Monocytes (Manual) (0.0-12.0) % Eosinophils (Manual) (0.00-3.0) % Basophils (Manual) (0.0-1.0) % Platelet Estimate (NORMAL) RBC Morphology D-Dimer 583 H* (215-500) ng/mL Sodium 136 L (137-145) mmol/L Potassium 4.4 (3.5-5.1) mmol/L Chloride 103 (98-107) mmol/L Carbon Dioxide 26 (22-30) mmol/L Anion Gap 11.4 (5-15) MEQ/L BUN 19 H (7-17) mg/dL Creatinine 0.91 (0.52-1.04) mg/dL Estimated GFR > 60.0 ML/MIN Glucose 143 H (74-106) mg/dL Calcium 9.1 (8.4-10.2) mg/dL Total Bilirubin 0.40 (0.2-1.3) mg/dL AST 22 (14-36) U/L ALT 16 (0-35) U/L Alkaline Phosphatase 71 (38-126) U/L Troponin I < 0.012 (0.000-0.034) ng/mL NT-Pro-B Natriuret Pep 44.2 (0-900) pg/mL Serum Total Protein 7.2 (6.3-8.2) g/dL Albumin 4.2 (3.5-5.0) g/dL 05/30/21 Range/Units 19:12 WBC 12.0 H (4.0-10.5) K/mm3 RBC 4.50 (4.1-5.4) M/mm3 Hgb 12.7 (12.0-16.0) gm/dl Hct 40.6 (35-47) % MCV 90.2 (78-100) fl MCH 28.2 (26-32) pg MCHC 31.3 L (32-36) g/dl RDW 14.4 H (11.5-14.0) % Plt Count 259 (150-450) K/mm3 MPV 11.2 H (7.5-11.0) fl Segmented Neutrophils 65 (36.0-66.0) % Lymphocytes (Manual) 28 (24-44) % Monocytes (Manual) 3 (0.0-12.0) % Eosinophils (Manual) 3 (0.00-3.0) % Basophils (Manual) 1 (0.0-1.0) % Platelet Estimate NORMAL (NORMAL) RBC Morphology NORMAL D-Dimer (215-500) ng/mL Sodium (137-145) mmol/L Potassium (3.5-5.1) mmol/L Chloride (98-107) mmol/L Carbon Dioxide (22-30) mmol/L Anion Gap (5-15) MEQ/L BUN (7-17) mg/dL Creatinine (0.52-1.04) mg/dL Estimated GFR ML/MIN Glucose (74-106) mg/dL Calcium (8.4-10.2) mg/dL Total Bilirubin (0.2-1.3) mg/dL AST (14-36) U/L ALT (0-35) U/L Alkaline Phosphatase (38-126) U/L Troponin I (0.000-0.034) ng/mL NT-Pro-B Natriuret Pep (0-900) pg/mL Serum Total Protein (6.3-8.2) g/dL Albumin (3.5-5.0) g/dL - Progress Progress: improved, re-examined Air Movement: good Progress Note: 05/30/21 20:28 minimal effect after first Nitro then more improvement after nitro paste, but also breathing Tx/steroids. pain nearly gone just slight now. No furhter SOBreath. Discussed with Dr. Griffith and with patient and with risk factors all agree best to remain in hospital on obs til morning and recheck/monitor and f/u cardio outpt later if no interim problems. 05/30/21 21:33 Blood Culture(s) Obtained: No Antibiotics given: No Discussed with : Camilo Will see patient in: hospital (observation) Counseled pt/family regarding: lab results, diagnosis, need for follow-up, rad results - Departure Departure Disposition: Observation Clinical Impression: Chest pain, Asthma Condition: Good Critical Care Time: No Referrals: RAFAEL GRIFFITH, DO [Primary Care Provider] - Follow up/PCP as directed
[2021-05-30] MEDS ORDERED: DUONEB 0.5-3 MG/3 ml Neb IH ONE ×2 (19:05→19:27)
[2021-05-30] MEDS ORDERED: solu-MEDROL 125 MG, Sterile H2O 10 ml 2 ML IV ONE ×2 (19:05)
[2021-05-30] MEDS ORDERED: BABY ASPIRIN 81 MG CHEW ONE (19:09)
[2021-05-30] MEDS ORDERED: solu-MEDROL ONE (19:09)
[2021-05-30] MEDS: Magnesium 1 Gm / 100 Ml D5W*** 100 ML IV SCH (19:11)
[2021-05-30] MEDS ORDERED: Sodium Chloride 0.9% 1000 ML 1,000 ML IV SCH (19:15)
[2021-05-30 19:16] LABS: Hematocrit 40.6 % (35-47); Hemoglobin 12.7 gm/dl (12.0-16.0); Mean Cell Volume 90.2 fl (78-100); Mean Corpuscular Hemoglobin 28.2 pg (26-32); Mean Corpuscular Hgb Concent. 31.3 g/dl (32-36); Mean Platelet Volume 11.2 fl (7.5-11.0); Platelet Count 259 K/mm3 (150-450); Red Cell Distribution Width 14.4 % (11.5-14.0)
[2021-05-30 19:38] LABS: ALBUMIN 4.2 g/dL (3.5-5.0); ALKALINE PHOSPHATASE 71 U/L (38-126); BLOOD UREA NITROGEN 19 mg/dL (7-17); Calcium 9.1 mg/dL (8.4-10.2); Carbon Dioxide 26 mmol/L (22-30); Creatinine 1 0.91 mg/dL (0.52-1.04); EST GLOMERULAR FILTRATION RATE > 60.0 ML/MIN; Glucose 143 mg/dL (74-106); NT PRO BNP 44.2 pg/mL (0-900); Potassium 4.4 mmol/L (3.5-5.1); SGOT/AST 22 U/L (14-36); SGPT/ALT 16 U/L (0-35); SODIUM 136 mmol/L (137-145); Total Protein 7.2 g/dL (6.3-8.2)
[2021-05-30] MEDS ORDERED: NITRO-BID 2% UD PACKETS TOP ONE (19:40)
[2021-05-30] MEDS ORDERED: NITRO-BID 2% UD PACKETS ONE (19:41)
[2021-05-30 20:01] LABS: CHLORIDE 103 mmol/L (98-107)
[2021-05-30 20:02] LABS: ANION GAP 11.4 MEQ/L (5-15)
[2021-05-30 20:07] LABS: Basophil 1 % (0.0-1.0); Eosinophil 3 % (0.00-3.0); Lymphocytes 28 % (24-44); Monocyte 3 % (0.0-12.0); Neutrophils 65 % (36.0-66.0); Total Cells Counted 100
[2021-05-30 20:08] LABS: Platelet Estimate NORMAL (NORMAL)
[2021-05-30] MEDS ORDERED: HOLD METFORMIN PRODUCTS FOR 48 HOURS MC SCH (21:00)
--- NOTE | 2021-05-30 21:03 | XRAY ---
Indication: Short of breath. Comparison: January 09, 2021. Portable chest less inflated and remains clear. Heart not enlarged. Bony thorax intact again with mild degenerative changes. No new/acute findings.
--- NOTE | 2021-05-30 21:26 | XRAY ---
Indication: Short of breath and chest pain. Elevated d-dimer. Multiple contiguous images obtained through the chest using 80 cc Isovue 370 contrast and PE protocol. Comparison: None There is good opacification of the pulmonary arteries including lobar and segmental branches. Minimal respiration artifact throughout slightly degrades the exam. No pulmonary embolus. Heart not enlarged. Aorta is normal in course and caliber. No pathologic mediastinal/hilar lymphadenopathy. Lungs demonstrates minimal bibasilar subsegmental atelectasis/scarring. 4 mm medial right upper lobe noncalcified nodule. No infiltrates, effusion, or pneumothorax. Bony thorax intact with mild degenerative changes throughout the spine. Limited upper abdomen demonstrates fatty liver and cholecystectomy clips. Impression: 1. Minimal respiration artifact. 2. Negative pulmonary embolus. No acute cardiopulmonary abnormalities. 3. 4 mm indeterminate right upper lobe noncalcified nodule. Finding similar to CT cardiac calcium score exam October 28, 2020. Recommend follow-up per Fleischner guidelines. 4. Incidental fatty liver. Comment: Preliminary interpretation made by [facility]. No critical discrepancy.
[2021-05-30 22:28] LABS: INFLUENZA A NEGATIVE (NEGATIVE); INFLUENZA B NEGATIVE (NEGATIVE); RESPIRATORY SYNCTIAL VIRUS NEGATIVE (Negative); SARS-CoV-2 Xpert Express NEGATIVE (NEGATIVE)
[2021-05-30] MEDS ORDERED: MILK OF MAGNESIA 30 ML PO PRN (22:53)
[2021-05-30] MEDS ORDERED: HUMULIN R SQ PRN (22:53)
[2021-05-30] MEDS ORDERED: TYLENOL 325 MG PO PRN (22:53)
[2021-05-30] MEDS ORDERED: Zofran 4 MG/2 ML VIAL IV PRN (22:53)
[2021-05-30] MEDS ORDERED: MAALOX ES 30 ML UNIT DOSE PO PRN (22:53)
[2021-05-30] MEDS ORDERED: Senokot-S Tablet PO PRN (22:53)
[2021-05-30] MEDS ORDERED: DUONEB 0.5-3 MG/3 ml Neb IH SCH (23:00)
[2021-05-31] MEDS: Magnesium 1 Gm / 100 Ml D5W*** 100 ML IV SCH (00:39)
[2021-05-31 06:41] LABS: Hematocrit 42.3 % (35-47); Hemoglobin 13.2 gm/dl (12.0-16.0); Mean Cell Volume 89.2 fl (78-100); Mean Corpuscular Hemoglobin 27.8 pg (26-32); Mean Corpuscular Hgb Concent. 31.2 g/dl (32-36); Mean Platelet Volume 11.3 fl (7.5-11.0); Platelet Count 254 K/mm3 (150-450); Red Blood Count 4.74 M/mm3 (4.1-5.4); Red Cell Distribution Width 14.5 % (11.5-14.0)
[2021-05-31 08:27] LABS: ANION GAP 13.4 MEQ/L (5-15); BLOOD UREA NITROGEN 19 mg/dL (7-17); CHLORIDE 103 mmol/L (98-107); Calcium 8.8 mg/dL (8.4-10.2); Carbon Dioxide 23 mmol/L (22-30); Cholesterol 172 mg/dL (50-200); Creatinine 1 0.63 mg/dL (0.52-1.04); EST GLOMERULAR FILTRATION RATE > 60.0 ML/MIN; Glucose 221 mg/dL (74-106); HDL CHOLESTEROL 64 mg/dL (40-60); LDL, DIRECT 75 mg/dL (30-100); NT PRO BNP 151 pg/mL (0-900); Potassium 4.4 mmol/L (3.5-5.1); Risk Ratio 2.7; SODIUM 135 mmol/L (137-145); TRIGLYCERIDE 63 mg/dL (30-150); TSH, 3RD Generation 0.159 mIU/L (0.47-4.68)
[2021-05-31] MEDS: DUONEB 0.5-3 MG/3 ml Neb IH SCH ×2 (08:32→11:50)
[2021-05-31] MEDS ORDERED: DELTASONE 20 MG PO SCH (10:00)
[2021-05-31] MEDS ORDERED: Ecotrin 325 MG PO SCH (10:00)
[2021-05-31 11:54] VITALS: O2SAT 94
[2021-05-31] MEDS ORDERED: DUONEB 0.5-3 MG/3 ml Neb IH PRN (11:54)
[2021-05-31] MEDS ORDERED: Zithromax 500 MG/ 250 ML NaCl Premix 500 MG/250 ML IVPB IV SCH (13:30)
[2021-05-31] MEDS ORDERED: ROCEPHIN 1 Gm-D5w 50 ml Bag** 1 G/50 ML IVPB IV SCH (13:40)
--- NOTE | 2021-05-31 14:46 | PCM.SSS ---
History of Present Illness - Chief Complaint Chief Complaint: SOB History of Present Illness: is a 61 year old female patient of mine with prediabetes,HLD,. Medications & Allergies Home Medications: Home Medication List Carvedilol 12.5 mg [Coreg 12.5 mg] 12.5 mg PO BID 04/13/16 [History Confirmed 05/30/21] Fluoxetine HCl 10 mg [Prozac 10 mg] 10 mg PO DAILY 04/13/16 [History Confirmed 05/30/21] Levothyroxine Sodium 75 Mcg [Synthroid 75 Mcg] 75 mcg PO DAILY 04/13/16 [History Confirmed 05/30/21] Lisinopril 20 mg [Zestril 20 MG] 20 mg PO DAILY 04/13/16 [History Confirmed 05/30/21] Pravastatin Sodium [Pravachol] 20 mg PO HS 04/13/16 [History Confirmed 05/30/21] Pledger-3 Fatty Acids/Fish Oil [Fish Oil 1,000 mg Capsule] 1,000 mg PO DAILY 04/15/16 [History Confirmed 05/30/21] Potassium 99 mg PO DAILY 04/15/16 [History Confirmed 05/30/21] Vitamin E 400 Units [Vitamin E 400 UNIT SOFTGEL] 400 unit PO DAILY 04/15/16 [History Confirmed 05/30/21] Metformin HCl Xr 500 mg [Glucophage XR 500 MG] 500 mg PO BID 05/30/21 [History Confirmed 05/30/21] Allergies/Adverse Reactions: Allergies Allergy/AdvReac Type Severity Reaction Status Date / Time No Known Drug Allergies Allergy Verified 05/31/21 00:10 - Past Medical History Past Medical History: Yes Neurological History: Migraines ENT History: No Pertinent History Cardiac History: High Cholesterol, Hypertension, Other Respiratory History: No Pertinent History Endocrine Medical History: Hypothyroidism Musculoskelatal History: Osteoarthritis GI Medical History: Hepatitis History: No Pertinent History Pyscho-Social History: Anxiety Reproductive Disorders: No Pertinent History Comment: PATIENT REPORTS SHE HAS A HEART MURMUR SINCE AGE OF 8. OA IN BILATERAL KNEES. RECENTLY COMPLETED SERIES OF 3 GEL INJECTIONS AND PAIN HAS IMPROVED. - Female History Are you now?: No - Past Surgical History Past Surgical History: Yes Neuro Surgical History: No Pertinent History Cardiac History: Cardiac Catheterization Respiratory Surgery: No Pertinent History GI Surgical History: Cholecystectomy Genitourinary Surgical Hx: No Pertinent History Musculskeletal Surgical Hx: No Pertinent History Female Surgical History: Section, Tubal Ligation Other Surgical History: cystectomy. d&c. breast bx,. bilateral heal spurs - Social History Smoking Status: Former smoker Exposure to second hand smoke: Yes Alcohol: None Drug Use: none - Physical Exam Vital Signs: Vital Signs - 24 hr Temp Pulse Resp BP Pulse Ox 05/31/21 12:00 98.4 F 72 19 126/58 94 L 05/31/21 11:51 73 16 94 L 05/31/21 08:32 70 18 91 L 05/31/21 08:00 97.5 F 68 21 138/67 91 L 05/31/21 04:00 96 F 63 20 110/59 92 L 05/31/21 00:15 65 20 91 L 05/30/21 23:04 97.5 F 73 20 137/71 92 L 05/30/21 22:26 79 20 153/83 92 L 05/30/21 21:35 98 05/30/21 21:14 76 20 149/80 94 L 05/30/21 19:53 64 24 151/84 95 05/30/21 19:32 65 24 94 L 05/30/21 19:05 96 05/30/21 18:56 98.0 F 66 22 174/91 97 Results - Labs Lab/Micro Results: Lab Results-Last 24 Hours 05/30/21 05/30/21 05/30/21 Range/Units 19:02 19:12 19:12 WBC 12.0 H (4.0-10.5) K/mm3 RBC 4.50 (4.1-5.4) M/mm3 Hgb 12.7 (12.0-16.0) gm/dl Hct 40.6 (35-47) % MCV 90.2 (78-100) fl MCH 28.2 (26-32) pg MCHC 31.3 L (32-36) g/dl RDW 14.4 H (11.5-14.0) % Plt Count 259 (150-450) K/mm3 MPV 11.2 H (7.5-11.0) fl Segmented Neutrophils 65 (36.0-66.0) % Lymphocytes (Manual) 28 (24-44) % Monocytes (Manual) 3 (0.0-12.0) % Eosinophils (Manual) 3 (0.00-3.0) % Basophils (Manual) 1 (0.0-1.0) % Platelet Estimate NORMAL (NORMAL) RBC Morphology NORMAL D-Dimer (215-500) ng/mL Sodium 136 L (137-145) mmol/L Potassium 4.4 (3.5-5.1) mmol/L Chloride 103 (98-107) mmol/L Carbon Dioxide 26 (22-30) mmol/L Anion Gap 11.4 (5-15) MEQ/L BUN 19 H (7-17) mg/dL Creatinine 0.91 (0.52-1.04) mg/dL Estimated GFR > 60.0 ML/MIN Glucose 143 H (74-106) mg/dL POC Glucometer (74 to 106) mg/dL Hemoglobin A1c 6.26 H (4.5-6.0) % Calcium 9.1 (8.4-10.2) mg/dL Total Bilirubin 0.40 (0.2-1.3) mg/dL AST 22 (14-36) U/L ALT 16 (0-35) U/L Alkaline Phosphatase 71 (38-126) U/L Troponin I (0.000-0.034) ng/mL NT-Pro-B Natriuret Pep 44.2 (0-900) pg/mL Serum Total Protein 7.2 (6.3-8.2) g/dL Albumin 4.2 (3.5-5.0) g/dL Triglycerides (30-150) mg/dL Cholesterol (50-200) mg/dL LDL Cholesterol (30-100) mg/dL HDL Cholesterol (40-60) mg/dL Heart Disease Risk Ratio TSH 3rd Generation (0.47-4.68) mIU/L Influenza Type A Ag (NEGATIVE) Influenza Type B Ag (NEGATIVE) RSV (PCR) (Negative) SARS-CoV-2 (PCR) (NEGATIVE) 05/30/21 05/30/21 05/30/21 Range/Units 19:12 19:12 21:39 WBC (4.0-10.5) K/mm3 RBC (4.1-5.4) M/mm3 Hgb (12.0-16.0) gm/dl Hct (35-47) % MCV (78-100) fl MCH (26-32) pg MCHC (32-36) g/dl RDW (11.5-14.0) % Plt Count (150-450) K/mm3 MPV (7.5-11.0) fl Segmented Neutrophils (36.0-66.0) % Lymphocytes (Manual) (24-44) % Monocytes (Manual) (0.0-12.0) % Eosinophils (Manual) (0.00-3.0) % Basophils (Manual) (0.0-1.0) % Platelet Estimate (NORMAL) RBC Morphology D-Dimer 583 H* (215-500) ng/mL Sodium (137-145) mmol/L Potassium (3.5-5.1) mmol/L Chloride (98-107) mmol/L Carbon Dioxide (22-30) mmol/L Anion Gap (5-15) MEQ/L BUN (7-17) mg/dL Creatinine (0.52-1.04) mg/dL Estimated GFR ML/MIN Glucose (74-106) mg/dL POC Glucometer (74 to 106) mg/dL Hemoglobin A1c (4.5-6.0) % Calcium (8.4-10.2) mg/dL Total Bilirubin (0.2-1.3) mg/dL AST (14-36) U/L ALT (0-35) U/L Alkaline Phosphatase (38-126) U/L Troponin I < 0.012 (0.000-0.034) ng/mL NT-Pro-B Natriuret Pep (0-900) pg/mL Serum Total Protein (6.3-8.2) g/dL Albumin (3.5-5.0) g/dL Triglycerides (30-150) mg/dL Cholesterol (50-200) mg/dL LDL Cholesterol (30-100) mg/dL HDL Cholesterol (40-60) mg/dL Heart Disease Risk Ratio TSH 3rd Generation (0.47-4.68) mIU/L Influenza Type A Ag NEGATIVE (NEGATIVE) Influenza Type B Ag NEGATIVE (NEGATIVE) RSV (PCR) NEGATIVE (Negative) SARS-CoV-2 (PCR) NEGATIVE (NEGATIVE) 05/30/21 05/31/21 05/31/21 Range/Units 22:13 06:15 06:15 WBC 16.0 H (4.0-10.5) K/mm3 RBC 4.74 (4.1-5.4) M/mm3 Hgb 13.2 (12.0-16.0) gm/dl Hct 42.3 (35-47) % MCV 89.2 (78-100) fl MCH 27.8 (26-32) pg MCHC 31.2 L (32-36) g/dl RDW 14.5 H (11.5-14.0) % Plt Count 254 (150-450) K/mm3 MPV 11.3 H (7.5-11.0) fl Segmented Neutrophils (36.0-66.0) % Lymphocytes (Manual) (24-44) % Monocytes (Manual) (0.0-12.0) % Eosinophils (Manual) (0.00-3.0) % Basophils (Manual) (0.0-1.0) % Platelet Estimate (NORMAL) RBC Morphology D-Dimer (215-500) ng/mL Sodium 135 L (137-145) mmol/L Potassium 4.4 (3.5-5.1) mmol/L Chloride 103 (98-107) mmol/L Carbon Dioxide 23 (22-30) mmol/L Anion Gap 13.4 (5-15) MEQ/L BUN 19 H (7-17) mg/dL Creatinine 0.63 (0.52-1.04) mg/dL Estimated GFR > 60.0 ML/MIN Glucose 221 H (74-106) mg/dL POC Glucometer (74 to 106) mg/dL Hemoglobin A1c (4.5-6.0) % Calcium 8.8 (8.4-10.2) mg/dL Total Bilirubin (0.2-1.3) mg/dL AST (14-36) U/L ALT (0-35) U/L Alkaline Phosphatase (38-126) U/L Troponin I < 0.012 (0.000-0.034) ng/mL NT-Pro-B Natriuret Pep 151 (0-900) pg/mL Serum Total Protein (6.3-8.2) g/dL Albumin (3.5-5.0) g/dL Triglycerides 63 (30-150) mg/dL Cholesterol 172 (50-200) mg/dL LDL Cholesterol 75 (30-100) mg/dL HDL Cholesterol 64 H (40-60) mg/dL Heart Disease Risk Ratio 2.7 TSH 3rd Generation 0.159 L (0.47-4.68) mIU/L Influenza Type A Ag (NEGATIVE) Influenza Type B Ag (NEGATIVE) RSV (PCR) (Negative) SARS-CoV-2 (PCR) (NEGATIVE) 05/31/21 05/31/21 Range/Units 07:53 11:35 WBC (4.0-10.5) K/mm3 RBC (4.1-5.4) M/mm3 Hgb (12.0-16.0) gm/dl Hct (35-47) % MCV (78-100) fl MCH (26-32) pg MCHC (32-36) g/dl RDW (11.5-14.0) % Plt Count (150-450) K/mm3 MPV (7.5-11.0) fl Segmented Neutrophils (36.0-66.0) % Lymphocytes (Manual) (24-44) % Monocytes (Manual) (0.0-12.0) % Eosinophils (Manual) (0.00-3.0) % Basophils (Manual) (0.0-1.0) % Platelet Estimate (NORMAL) RBC Morphology D-Dimer (215-500) ng/mL Sodium (137-145) mmol/L Potassium (3.5-5.1) mmol/L Chloride (98-107) mmol/L Carbon Dioxide (22-30) mmol/L Anion Gap (5-15) MEQ/L BUN (7-17) mg/dL Creatinine (0.52-1.04) mg/dL Estimated GFR ML/MIN Glucose (74-106) mg/dL POC Glucometer 195 H 211 H (74 to 106) mg/dL Hemoglobin A1c (4.5-6.0) % Calcium (8.4-10.2) mg/dL Total Bilirubin (0.2-1.3) mg/dL AST (14-36) U/L ALT (0-35) U/L Alkaline Phosphatase (38-126) U/L Troponin I (0.000-0.034) ng/mL NT-Pro-B Natriuret Pep (0-900) pg/mL Serum Total Protein (6.3-8.2) g/dL Albumin (3.5-5.0) g/dL Triglycerides (30-150) mg/dL Cholesterol (50-200) mg/dL LDL Cholesterol (30-100) mg/dL HDL Cholesterol (40-60) mg/dL Heart Disease Risk Ratio TSH 3rd Generation (0.47-4.68) mIU/L Influenza Type A Ag (NEGATIVE) Influenza Type B Ag (NEGATIVE) RSV (PCR) (Negative) SARS-CoV-2 (PCR) (NEGATIVE) - Radiology Impressions Radiology Exams & Impressions: Radiology Procedures Category Date Time Status CHEST 1 VIEW (PORTABLE) Stat Exams 05/30/21 19:03 Completed CHEST WITH CONTRAST [CT] Stat Exams 05/30/21 19:31 Completed - Other Procedures and Tests Respiratory Therapy 05/30/21 19:31 Respiratory Therapy Assessment DAILY 05/30/21 23:06 BiPap/CPAP ROUTINE 05/31/21 00:10 Oxygen Nasal Cannula 2 lpm 06/01/21 05:00 EKG DAILY 06/02/21 05:00 EKG DAILY 06/03/21 05:00 EKG DAILY Hospital Summary - Vitals & Intake/Output Vital Signs: Vital Signs Temperature 98.4 F 05/31/21 12:00 Pulse Rate 72 05/31/21 12:00 Respiratory Rate 19 05/31/21 12:00 Blood Pressure 126/58 05/31/21 12:00 O2 Sat by Pulse Oximetry 94 L 05/31/21 12:00 Intake & Output: Intake & Output 05/29/21 05/30/21 05/31/21 06/01/21 11:59 11:59 11:59 11:59 Intake Total 333 Balance 333 Weight 119.3 kg - Lab Result Diagrams: 05/31/21 06:15 05/31/21 06:15 Lab Results-Last 24 Hrs: Lab Results-Last 24 Hours 05/30/21 05/30/21 05/30/21 Range/Units 19:02 19:12 19:12 WBC 12.0 H (4.0-10.5) K/mm3 RBC 4.50 (4.1-5.4) M/mm3 Hgb 12.7 (12.0-16.0) gm/dl Hct 40.6 (35-47) % MCV 90.2 (78-100) fl MCH 28.2 (26-32) pg MCHC 31.3 L (32-36) g/dl RDW 14.4 H (11.5-14.0) % Plt Count 259 (150-450) K/mm3 MPV 11.2 H (7.5-11.0) fl Segmented Neutrophils 65 (36.0-66.0) % Lymphocytes (Manual) 28 (24-44) % Monocytes (Manual) 3 (0.0-12.0) % Eosinophils (Manual) 3 (0.00-3.0) % Basophils (Manual) 1 (0.0-1.0) % Platelet Estimate NORMAL (NORMAL) RBC Morphology NORMAL D-Dimer (215-500) ng/mL Sodium 136 L (137-145) mmol/L Potassium 4.4 (3.5-5.1) mmol/L Chloride 103 (98-107) mmol/L Carbon Dioxide 26 (22-30) mmol/L Anion Gap 11.4 (5-15) MEQ/L BUN 19 H (7-17) mg/dL Creatinine 0.91 (0.52-1.04) mg/dL Estimated GFR > 60.0 ML/MIN Glucose 143 H (74-106) mg/dL POC Glucometer (74 to 106) mg/dL Hemoglobin A1c 6.26 H (4.5-6.0) % Calcium 9.1 (8.4-10.2) mg/dL Total Bilirubin 0.40 (0.2-1.3) mg/dL AST 22 (14-36) U/L ALT 16 (0-35) U/L Alkaline Phosphatase 71 (38-126) U/L Troponin I (0.000-0.034) ng/mL NT-Pro-B Natriuret Pep 44.2 (0-900) pg/mL Serum Total Protein 7.2 (6.3-8.2) g/dL Albumin 4.2 (3.5-5.0) g/dL Triglycerides (30-150) mg/dL Cholesterol (50-200) mg/dL LDL Cholesterol (30-100) mg/dL HDL Cholesterol (40-60) mg/dL Heart Disease Risk Ratio TSH 3rd Generation (0.47-4.68) mIU/L Influenza Type A Ag (NEGATIVE) Influenza Type B Ag (NEGATIVE) RSV (PCR) (Negative) SARS-CoV-2 (PCR) (NEGATIVE) 05/30/21 05/30/21 05/30/21 Range/Units 19:12 19:12 21:39 WBC (4.0-10.5) K/mm3 RBC (4.1-5.4) M/mm3 Hgb (12.0-16.0) gm/dl Hct (35-47) % MCV (78-100) fl MCH (26-32) pg MCHC (32-36) g/dl RDW (11.5-14.0) % Plt Count (150-450) K/mm3 MPV (7.5-11.0) fl Segmented Neutrophils (36.0-66.0) % Lymphocytes (Manual) (24-44) % Monocytes (Manual) (0.0-12.0) % Eosinophils (Manual) (0.00-3.0) % Basophils (Manual) (0.0-1.0) % Platelet Estimate (NORMAL) RBC Morphology D-Dimer 583 H* (215-500) ng/mL Sodium (137-145) mmol/L Potassium (3.5-5.1) mmol/L Chloride (98-107) mmol/L Carbon Dioxide (22-30) mmol/L Anion Gap (5-15) MEQ/L BUN (7-17) mg/dL Creatinine (0.52-1.04) mg/dL Estimated GFR ML/MIN Glucose (74-106) mg/dL POC Glucometer (74 to 106) mg/dL Hemoglobin A1c (4.5-6.0) % Calcium (8.4-10.2) mg/dL Total Bilirubin (0.2-1.3) mg/dL AST (14-36) U/L ALT (0-35) U/L Alkaline Phosphatase (38-126) U/L Troponin I < 0.012 (0.000-0.034) ng/mL NT-Pro-B Natriuret Pep (0-900) pg/mL Serum Total Protein (6.3-8.2) g/dL Albumin (3.5-5.0) g/dL Triglycerides (30-150) mg/dL Cholesterol (50-200) mg/dL LDL Cholesterol (30-100) mg/dL HDL Cholesterol (40-60) mg/dL Heart Disease Risk Ratio TSH 3rd Generation (0.47-4.68) mIU/L Influenza Type A Ag NEGATIVE (NEGATIVE) Influenza Type B Ag NEGATIVE (NEGATIVE) RSV (PCR) NEGATIVE (Negative) SARS-CoV-2 (PCR) NEGATIVE (NEGATIVE) 05/30/21 05/31/21 05/31/21 Range/Units 22:13 06:15 06:15 WBC 16.0 H (4.0-10.5) K/mm3 RBC 4.74 (4.1-5.4) M/mm3 Hgb 13.2 (12.0-16.0) gm/dl Hct 42.3 (35-47) % MCV 89.2 (78-100) fl MCH 27.8 (26-32) pg MCHC 31.2 L (32-36) g/dl RDW 14.5 H (11.5-14.0) % Plt Count 254 (150-450) K/mm3 MPV 11.3 H (7.5-11.0) fl Segmented Neutrophils (36.0-66.0) % Lymphocytes (Manual) (24-44) % Monocytes (Manual) (0.0-12.0) % Eosinophils (Manual) (0.00-3.0) % Basophils (Manual) (0.0-1.0) % Platelet Estimate (NORMAL) RBC Morphology D-Dimer (215-500) ng/mL Sodium 135 L (137-145) mmol/L Potassium 4.4 (3.5-5.1) mmol/L Chloride 103 (98-107) mmol/L Carbon Dioxide 23 (22-30) mmol/L Anion Gap 13.4 (5-15) MEQ/L BUN 19 H (7-17) mg/dL Creatinine 0.63 (0.52-1.04) mg/dL Estimated GFR > 60.0 ML/MIN Glucose 221 H (74-106) mg/dL POC Glucometer (74 to 106) mg/dL Hemoglobin A1c (4.5-6.0) % Calcium 8.8 (8.4-10.2) mg/dL Total Bilirubin (0.2-1.3) mg/dL AST (14-36) U/L ALT (0-35) U/L Alkaline Phosphatase (38-126) U/L Troponin I < 0.012 (0.000-0.034) ng/mL NT-Pro-B Natriuret Pep 151 (0-900) pg/mL Serum Total Protein (6.3-8.2) g/dL Albumin (3.5-5.0) g/dL Triglycerides 63 (30-150) mg/dL Cholesterol 172 (50-200) mg/dL LDL Cholesterol 75 (30-100) mg/dL HDL Cholesterol 64 H (40-60) mg/dL Heart Disease Risk Ratio 2.7 TSH 3rd Generation 0.159 L (0.47-4.68) mIU/L Influenza Type A Ag (NEGATIVE) Influenza Type B Ag (NEGATIVE) RSV (PCR) (Negative) SARS-CoV-2 (PCR) (NEGATIVE) 05/31/21 05/31/21 Range/Units 07:53 11:35 WBC (4.0-10.5) K/mm3 RBC (4.1-5.4) M/mm3 Hgb (12.0-16.0) gm/dl Hct (35-47) % MCV (78-100) fl MCH (26-32) pg MCHC (32-36) g/dl RDW (11.5-14.0) % Plt Count (150-450) K/mm3 MPV (7.5-11.0) fl Segmented Neutrophils (36.0-66.0) % Lymphocytes (Manual) (24-44) % Monocytes (Manual) (0.0-12.0) % Eosinophils (Manual) (0.00-3.0) % Basophils (Manual) (0.0-1.0) % Platelet Estimate (NORMAL) RBC Morphology D-Dimer (215-500) ng/mL Sodium (137-145) mmol/L Potassium (3.5-5.1) mmol/L Chloride (98-107) mmol/L Carbon Dioxide (22-30) mmol/L Anion Gap (5-15) MEQ/L BUN (7-17) mg/dL Creatinine (0.52-1.04) mg/dL Estimated GFR ML/MIN Glucose (74-106) mg/dL POC Glucometer 195 H 211 H (74 to 106) mg/dL Hemoglobin A1c (4.5-6.0) % Calcium (8.4-10.2) mg/dL Total Bilirubin (0.2-1.3) mg/dL AST (14-36) U/L ALT (0-35) U/L Alkaline Phosphatase (38-126) U/L Troponin I (0.000-0.034) ng/mL NT-Pro-B Natriuret Pep (0-900) pg/mL Serum Total Protein (6.3-8.2) g/dL Albumin (3.5-5.0) g/dL Triglycerides (30-150) mg/dL Cholesterol (50-200) mg/dL LDL Cholesterol (30-100) mg/dL HDL Cholesterol (40-60) mg/dL Heart Disease Risk Ratio TSH 3rd Generation (0.47-4.68) mIU/L Influenza Type A Ag (NEGATIVE) Influenza Type B Ag (NEGATIVE) RSV (PCR) (Negative) SARS-CoV-2 (PCR) (NEGATIVE) - Radiology Exams Ordered Rad Exams-Entire Visit: Radiology Procedures Category Date Time Status CHEST 1 VIEW (PORTABLE) Stat Exams 05/30/21 19:03 Completed CHEST WITH CONTRAST [CT] Stat Exams 05/30/21 19:31 Completed - Procedures and Test Procedures and Tests throughout Hospitalization: Therapy Orders & Screens 05/30/21 19:31 Respiratory Therapy Assessment DAILY Comment: 05/30/21 22:53 EKG [id number],QAMX3,PRN Comment: Respiratory Therapy Consult ROUTINE Comment: Reason For Exam: 05/30/21 23:06 BiPap/CPAP ROUTINE Comment: pt wears a CPAP at home 05/30/21 23:33 RT Screen per Nursing Assess ONCE Comment: Protocol Order Physician Instructions: Greater than 3 points order RT Admission Screen Reason For Exam: Triggered on Admission Diagnosis: SOB Diagnosis: SOB Pneumonia: No Home O2: Yes Asthma: Yes Home CPAP/BIPAP: Yes Home Nebs/MDI: Yes Total Points: 19 05/31/21 00:10 Oxygen Nasal Cannula 2 lpm Comment: Diagnosis: SOB 05/31/21 03:02 EKG ROUTINE Comment: Diagnosis: SOB 06/01/21 05:00 EKG DAILY Comment: Diagnosis: SOB 06/02/21 05:00 EKG DAILY Comment: Diagnosis: SOB 06/03/21 05:00 EKG DAILY Comment: Diagnosis: SOB - Discharge Disposition: Home, Self-Care Condition: Good Prescriptions: No Action Lisinopril 20 mg [Zestril 20 MG] 20 mg PO DAILY Levothyroxine Sodium 75 Mcg [Synthroid 75 Mcg] 75 mcg PO DAILY Pravastatin Sodium [Pravachol] 20 mg PO HS Carvedilol 12.5 mg [Coreg 12.5 mg] 12.5 mg PO BID Fluoxetine HCl 10 mg [Prozac 10 mg] 10 mg PO DAILY Vitamin E 400 Units [Vitamin E 400 UNIT SOFTGEL] 400 unit PO DAILY Pledger-3 Fatty Acids/Fish Oil [Fish Oil 1,000 mg Capsule] 1,000 mg PO DAILY Potassium 99 mg PO DAILY Metformin HCl Xr 500 mg [Glucophage XR 500 MG] 500 mg PO BID Instructions: Acute Bronchitis, Adult (DC) Follow up with: RAFAEL FULTON DO [Primary Care Provider] - 06/03/21
--- NOTE | 2021-05-31 14:59 | PCM.DCORD ---
- Discharge Disposition: Home, Self-Care Condition: Good Prescriptions: New Prednisone 10 mg [Deltasone 10 mg] 10 mg PO DAILY #60 tablet Azithromycin 250 mg [Zithromax 250 MG TABLET] 250 mg PO ZPACK #6 tablet Albuterol/Ipratropium 3ml Neb* [DUONEB 0.5-3 MG/3 ml Neb] 3 ml NEB Q6-8HPRN PRN #90 PRN Reason: Shortness Of Breath/Wheezing Continue Lisinopril 20 mg [Zestril 20 MG] 20 mg PO DAILY Levothyroxine Sodium 75 Mcg [Synthroid 75 Mcg] 75 mcg PO DAILY Pravastatin Sodium [Pravachol] 20 mg PO HS Carvedilol 12.5 mg [Coreg 12.5 mg] 12.5 mg PO BID Fluoxetine HCl 10 mg [Prozac 10 mg] 10 mg PO DAILY Vitamin E 400 Units [Vitamin E 400 UNIT SOFTGEL] 400 unit PO DAILY Rudolph-3 Fatty Acids/Fish Oil [Fish Oil 1,000 mg Capsule] 1,000 mg PO DAILY Potassium 99 mg PO DAILY Metformin HCl Xr 500 mg [Glucophage XR 500 MG] 500 mg PO BID Instructions: Acute Bronchitis, Adult (DC) Follow up with: RAFAEL FULTON DO [Primary Care Provider] - 06/03/21
[2021-05-31 16:14] VITALS: BP 174/77; PULSE 76
== END 2021-05-31 16:02 | disposition home or self-care (01) ==
LOC: ED 18:53 → MED SURG 22:52
PROVIDERS: ADMIT Family Medicine; ATTEND Family Medicine
DX: R07.9 Chest pain, unspecified (principal); J45.909 Unspecified asthma, uncomplicated; R06.02 Shortness of breath; I10 Essential (primary) hypertension; E03.9 Hypothyroidism, unspecified; E78.5 Hyperlipidemia, unspecified; R73.03 Prediabetes; Z79.899 Other long term (current) drug therapy; Z87.891 Personal history of nicotine dependence; Z20.828 Contact with and (suspected) exposure to other viral communicable diseases
CPT/HCPCS: 0241U; 36000; 36415; 71045; 71260; 80048; 80053; 80061; 82947; 83036; 83721; 83880; 84443; 84484; 85025; 85027; 85379; 93005; 93041; 93268; 94640; 94660; 94760; 96374; 99284; G0378; J0456; J0696; J2930; J3475; A9270-GY